=== PATIENT | male | born 1980 | race Hispanic/Latino ===

== ENCOUNTER 2018-07-23 11:16 | Emergency (ER) | payer SELFPAY ==
[2018-07-23 11:19] VITALS: BP 119/87; PULSE 117; RESP 21; TEMP 36.6; O2SAT 100; BMI 29.0
--- NOTE | 2018-07-23 11:36 | RAD_ITS ---
STUDY: X-RAY CHEST REASON FOR EXAM: Male, 38 years old. Weakness, tachypnea TECHNIQUE: AP COMPARISON: None. FINDINGS: EKG leads project over the chest. Lungs are underexpanded with hypoinflation of the right diaphragm. There is no demonstrated pleural abnormality. Normal size heart. Normal mediastinum and haris. Normal visualized pulmonary arteries. Normal visualized aortic arch and descending thoracic aorta. Normal visualized thoracic spine. Normal visualized ribs, clavicles, and shoulders. There is no demonstrated abnormality of the visualized soft tissue structures of the upper abdomen. RAD/Chest 1 View (Portable) IMPRESSION: Nonacute portable x-ray examination of the chest. Hypoinflation. Electronically Signed: Yury Aburto MD at 12:00 EDT , Service support ,
--- NOTE | 2018-07-23 11:36 | EKG12_ITS ---
Test Reason : GI BLEED Blood Pressure : / mmHG Vent. Rate : 120 BPM Atrial Rate : 120 BPM P-R Int : 146 ms QRS Dur : 090 ms QT Int : 334 ms P-R-T Axes : 044 034 041 degrees QTc Int : 472 ms Sinus tachycardia Otherwise normal ECG Confirmed by VICKIE MATAMOROS MD ([id number]), editor house organ GABRIELE STONER ([id number] on 07/24/2018 4:22:30 PM Referred By: Confirmed By:VICKIE MATAMOROS MD
[2018-07-23] MEDS: 0.9% Normal Saline 1,000 ML 125 ML IV (11:46)
[2018-07-23 11:53] LABS: Absolute Lymphocyte Count 1.26 X10^3/ul (0.83-4.51); Absolute Neutrophil Count 4.4 X10^3/uL (2.0-7.7); Basophil# 0.04 X10^3/uL; Basophil% 0.7 % (0-1); Eosinophil# 0.01 X10^3/uL; Eosinophils% 0.2 % (0-5); Hematocrit 36.2 % (40-54); Hemoglobin 13.1 g/dl (13.0-16.5); Lymphocyte # 1.26 X10^3/ul (4.0); Lymphocyte % 20.8 % (19-41); Mean Corp Hgb Conc 36.2 g/gl (32-36); Mean Corpuscular Hgb 30.2 pg (27.0-32.0); Mean Corpuscular Volume 83.4 fL (80-94); Mean Platelet Vol. 10.7 fl (6.2-12.0); Monocyte# 0.35 X10^3/uL; Monocyte% 5.8 % (0-10); Neutrophil # 4.38 X10^3/uL (2.7-7.7); Neutrophil % 72.3 % (47-70); Platelet Count 211 K/mm3 (150-450); RBC Distribution Width SD 36.2 fl (35.1-43.9); Red Blood Count 4.34 M/mm3 (4.6-6.2); White Blood Count 6.1 K/mm3 (4.4-11.0)
[2018-07-23 11:54] LABS: POSITIVE COUNT NO; POSITIVE DIFFERENTIAL NO; POSITIVE MORPHOLOGY NO
[2018-07-23 12:00] LABS: International Normalized Ratio 1.2; Prothrombin Time (Protime)PT. 15.2 SECONDS (11.7-14.9)
[2018-07-23 12:19] VITALS: BP 100/69; BP 102/76; BP 84/66; PULSE 121; PULSE 134; PULSE 150
[2018-07-23 12:26] LABS: AST(SGOT) 42 U/L (15-37); Alanine Aminotransfer ALT/SGPT 32 U/L (16-61); Albumin, Serum 3.5 g/dL (3.2-5.0); Alkaline Phosphatase 70 U/L (45-117); Anion Gap 16 (5-15); BUN 20 mg/dL (7-18); BUN/Creat Ratio 23.1 RATIO (10-20); Calcium,Total 7.3 mg/dL (8.5-10.1); Chloride 92 mmol/L (98-107); Creatinine, Serum 0.87 mg/dL (0.70-1.30); EST Glomerular Filtration Rate 105 mL/min (>60); Est Glom Filt Rate - Afr Amer 127 mL/min (>60); Estimated Creatinine Clearance 82.22 ml/min; Globulin 3.4 g/dL (2.2-4.2); Glucose 180 mg/dL (74-106); Lactic Acid 6.9 mmol/L (0.4-2.0); Lipase 148 U/L (73-393); Potassium 2.7 mmol/L (3.5-5.1); Protein, Total 6.9 g/dL (6.4-8.2); Sodium Level 129 mmol/L (136-145)
--- NOTE | 2018-07-23 12:31 | ED.RN ---
POTASSIUM 2.7 LACTIC 6.9 AND ALCOHOL [address] LAB[address] DR SMALLWOOD AWARE
[2018-07-23] MEDS: 0.9% Normal Saline 1,000 ML 999 ML IV ×2 (12:33→13:05)
[2018-07-23 13:19] VITALS: BP 97/75; PULSE 130; RESP 24; O2SAT 97
--- NOTE | 2018-07-23 13:28 | ED.DCSUM_ITS ---
- ER Visit Summary Date of Service: 07/23/18 Chief Complaint: Vomiting blood History of Present Illness: The patient is a 38 M who was found this morning by housekeeping at a local motel where he had blood on his body his face. He tells me that 15 days ago he started drinking whiskey because of problems with his . He then lost his job because of not showing up and he continued to drink. He cannot tell me when the last time he had a meal was. He tells me for the past several days his stools have been black and runny. He states that today he started to vomit and that is were all the blood came from. Denies any trauma. He is from [place] and denies previous medical history. Physical Examination: Patient is tachycardic. He is orthostatic positive. Gen: Well-nourished well-developed Head: Normocephalic atraumatic Eyes: Perrl EOMI ENT: TMs clear no rhinorrhea moist mucous membranes there is dried bright red blood around the face in the naris on his chest and arms and hands. Neck: Supple no lymphadenopathy no JVD nontender CVS: Regular rate tachycardic rhythm no murmurs normal S1-S2 Respiratory: No distress clear to auscultation bilaterally chest nontender Abdomen: Soft nontender nondistended normal bowel sounds no masses Back: Nontender Extremity: Nontender no edema Skin: Normal color no rash Neuro: alert orientated ?3 CN II-XII intact normal strength sensation Psych: Normal affect normal mood Test Results: Hemoglobin is 13. Lactic acid 6.9. Troponin normal. AST is minimally elevated in the 40s. Lipase is normal. Troponin negative. Patient was typed and screened. Alcohol 290. Glucose 180. Potassium 2.7. Emergency Department Course and Treatment: IV was established patient placed on the monitor. He received IV fluids and Protonix bolus as well as Protonix drip. He also received thiamine and folate. Patient is orthostatic positive. His lactic acid is high. I spoke with on-call surgery who recommends transfer out of concern for possible varicocele bleed. Patient has been accepted to [facility]'s MICU. At one point while awaiting transfer the patient wanted to leave. He was informed that he is an intoxicated and in a state of hypovolemic shock. He agreed to stay and be transferred. No form of restraints were needed. Impression: 1. Upper GI bleed 2. Hypovolemic shock 3. Alcohol intoxication 4. Critical care time 35 minutes This note was generated with [employer] dictation software. It may contain incorrect words, spelling, and punctuation that were not noted in review of the chart prior to signing ED Disposition - Plan for ED Patient: Referrals: Care Physician,No Primary [Primary Care Provider] -
[2018-07-23 13:32] VITALS: BP 93/67; PULSE 125; RESP 24; O2SAT 97
[2018-07-23] MEDS: Potassium Chloride 10mEq/100mL 10 MEQ/100 ML IV.SOLN. 100 MEQ IV BOLUS (14:12)
[2018-07-23 15:47] LABS: Reflex Lactate? Y
== END 2018-07-23 14:58 | disposition short-term general hospital (02) ==
LOC: ED 12:18
PROVIDERS: Emergency Provider Emergency Medicine
DX: K92.0 Hematemesis (principal); R57.1 Hypovolemic shock; F10.129 Alcohol abuse with intoxication, unspecified; Y90.8 Blood alcohol level of 240 mg/100 ml or more; Z72.0 Tobacco use
CPT/HCPCS: 71045; 80053; 80320; 83605; 83690; 84484; 85025; 85610; 85730; 86850; 86900; 93005; 96365; 96366; 96368; 99284; J7030; A4216; G0480; J3490